=== PATIENT | male | born 1950 | race Two or more races ===

== ENCOUNTER 2025-05-26 21:05 | Emergency (ER) | payer OTHER ==
[~2025-05-26] VITALS: Ht 165.1 cm; Wt 99.8 kg
[2025-05-26] MEDS ORDERED: LABETALOL HCL100 MG PO (21:22)
[2025-05-26] MEDS ORDERED: AVAPRO300 MG PO (21:22)
[2025-05-26] MEDS ORDERED: FARXIGA10 MG PO (21:25)
[2025-05-26] MEDS ORDERED: DOXAZOSIN MESYLA4 MG PO (21:25)
[2025-05-26] MEDS ORDERED: ATORVASTATIN CA10 MG PO (21:25)
[2025-05-26] MEDS ORDERED: CLONIDINE1 EACH TD (21:25)
[2025-05-26] MEDS ORDERED: KETOROLAC TROMETHAMINE 60 MG VIAL IM ONE (21:30)
[2025-05-26] MEDS ORDERED: DEXAMETHASONE SODIUM PHOSPHATE 4 MG/ML VIAL IM ONE (21:30)
[2025-05-26 21:54] VITALS: BP 168/76; O2SAT 97
== END 2025-05-26 21:55 | disposition home or self-care (01) ==
LOC: ER 21:05
DX: H57.10 Ocular pain, unspecified eye (principal); I10 Essential (primary) hypertension
CPT/HCPCS: 96372; 99282; J1100; J1885